=== PATIENT | male | born 1985 | race Caucasian/White ===

== ENCOUNTER 2020-08-14 21:58 | Emergency (ER) | payer SELFPAY ==
[2020-08-14 21:57] VITALS: BP 124/72; PULSE 99; RESP 16; TEMP 36.7; O2SAT 97; BMI 28.1
--- NOTE | 2020-08-14 22:05 | XR_ITS ---
PROCEDURE: XR SHOULDER RT MIN 2V Referring Doctor: Jose Rossi Patient Age:34Y CLINICAL INDICATION: felt pop in shoulder with pain COMPARISON: No exams were available for comparison FINDINGS: RIGHT SHOULDER3 VIEW: Ap Internal And External Rotation Along With Y-view Right shoulder intact no fracture nor dislocation. Normal glenohumeral relationships. AC joint appears normal. Humeral head and neck appear intact. Scapula intact. Upper right ribs are right lung apex satisfactory. Bones well mineralized. No osseous lesions. Soft tissues unremarkable lesions IMPRESSION: No acute findings. . Right shoulder intact. Unremarkable on plain film Dictated by: Tanner Sanchez MD 08/15/2020 16:01 Tanner Sanchez MD in [place] 08/15/2020 16:01
--- NOTE | 2020-08-14 22:40 | [facility].EDMCLR ---
ED Disposition Clinical Impression: Medical clearance for incarceration Shoulder pain, right Qualifiers: Chronicity: acute Qualified Code(s): M25.511 - Pain in right shoulder Disposition: Home, Self-Care Condition on Discharge: Good Instructions: DI for Shoulder Pain Additional Instructions: see pcp for follow up Referrals: PCP,Myriam [Primary Care Provider] - - Critical Care Critical Care Time: No Attestation: On 08/14/20, the high probability of a clinically significant, sudden or life threatening deterioration of the following system(s) required my full and direct attention, intervention and personal management. The time I documented below is in addition to time spent performing reported procedures but includes the following listed in this critical care notation. Medical Decision Making - Medical Records Medical records reviewed: Yes: I reviewed the patient's medical records. - Santino Inquiry Pt receiving controlled substance: No Vital Signs: 08/14/20 21:57 Temperature 98.1 F Temperature Source Oral Pulse Rate [Left Radial] 99 H Respiratory Rate 16 Blood Pressure [Right Arm] 124/72 Blood Pressure Mean [Right Arm] 89 Blood Pressure Source [Right Arm] Automatic Cuff Blood Pressure Position [Right Arm] Sitting 02 Sat by Pulse Oximetry 97 Oxygen Delivery Method Room Air Orders (Tests/Meds): ORDERS Category Date Time Status XR shoulder RT min 2V Stat Exams 08/14/20 22:05 Taken - Radiology Data #1 Image(s): Shoulder Image Reviewed: Yes I reviewed the patient's radiology image Preliminary Findings: No Fracture Seen Medical Clearance HPI - General Chief complaint: Medical Clearance Stated complaint: medical clearence Time Seen by Provider: 08/14/20 22:20 Mode of Arrival: EMS Source of Information: Patient, Law Enforcement, Medical Record Limitations: No Limitations Description of Symptoms (Recalled from ER Triage Doc. by RN): pt brought in for medical clearence. pt stated he felt his right shoulder pop when he was placed in handcuffs and reports pain with movement. pt stated she was exposed to someone positive for COVID about a week and a half ago but denies any symptoms - History of Present Illness HPI Narrative: rt shoulder pain after handcuffed by police - heard pop and has hx of shoulder pain - no def sig covid contact complaint: medical clearance requested Onset (ago): hour(s) Reason for Medical Clearance: medical condition Traumatic Symptoms: extremity injury Associated Symptoms: denies other symptoms Treatments Prior to Arrival: none Allergies/Adverse reactions: Allergies Allergy/AdvReac Type Severity Reaction Status Date / Time No Known Allergies Allergy Unverified 09/11/17 15:06 [facility] History - Hepatitis A Screen Drug use history?: No High risk sexual behaviors?: No History of sexually transmitted infection?: No Currently employed?: No Childcare worker?: No Do you have indoor plumbing?: Yes Do you have electricity?: Yes Attestation statement:: This patient has been screened for Hepatitis A risk factors. I have reviewed the patient's past medical history: Yes ROS Obtained: Yes All systems reviewed & no additional complaints - Constitutional Constitutional: Denies fever(s) - Respiratory Respiratory: No cough - Genitourinary Male Genitourinary: Denies flank pain - Musculoskeletal Musculoskeletal: Reports as per HPI, Reports joint pain, Denies deformity, Denies joint swelling, Reports limited range of motion - Integumentary/Breasts Skin/Breast: Denies rash - Neurologic Neurologic: Denies seizure-like activity Physical Exam - General General appearance: alert - Head Head exam: normocephalic - Eye Eye exam: Present: PERRL, EOMI - ENT ENT exam: Present: mucous membranes moist - Neck Neck exam: Present: trachea midline - Respiratory Respiratory exam: Absent: respiratory distress - Cardiovascular Cardiovascular
[2020-08-14 22:55] VITALS: BP 153/82; PULSE 80; RESP 15; TEMP 36.7; O2SAT 98
== END 2020-08-14 22:57 | disposition home or self-care (01) ==
PROVIDERS: Emergency Provider Emergency Medicine
DX: M25.511 Pain in right shoulder (principal)
CPT/HCPCS: 73030; 99283

== ENCOUNTER 2023-01-08 16:57 | Emergency (ER) | payer OTHER, SELFPAY ==
[2023-01-08] VITALS (7 sets, daily range): BP systolic 125–146; BP diastolic 64–94; PULSE 82–102; RESP 16; TEMP 36.6; O2SAT 95–99; BMI 32.3
--- NOTE | 2023-01-08 17:34 | CT_ITS ---
PROCEDURE INFORMATION: Exam: CT Abdomen And Pelvis With Contrast Exam date and time: 01/08/2023 6:33 PM Age: 37 years old Clinical indication: Abdominal pain; Generalized; Additional info: Abscess TECHNIQUE: Imaging protocol: Computed tomography of the abdomen and pelvis with contrast. Radiation optimization: All CT scans at this facility use at least one of these dose optimization techniques: automated exposure control; mA and/or kV adjustment per patient size (includes targeted exams where dose is matched to clinical indication); or iterative reconstruction. Contrast material: ISOVUE; Contrast volume: 75 ml; Contrast route: IV; REPORTING DATA: Count of CT and Cardiac NM exams in prior 12 months: This patient has received 0 known CTs and 0 known cardiac nuclear medicine studies in the 12 months prior to the current study. COMPARISON: ABDPELW/O CT ABD PELVIS W/O CONTRAST 05/04/2017 1:43 AM FINDINGS: Liver: Normal. No mass. Gallbladder and bile ducts: Normal. No calcified stones. No ductal dilation. Pancreas: Normal. No ductal dilation. Spleen: Normal. No splenomegaly. Adrenal glands: Normal. No mass. Kidneys and ureters: Right kidney multiple punctate nonobstructing stones. Left kidney multiple nonobstructing stones measuring up to 3 mm. Stomach and bowel: Unremarkable. No obstruction. No mucosal thickening. Appendix: Normal appendix. Intraperitoneal space: Unremarkable. No free air. No significant fluid collection. Vasculature: Unremarkable. No abdominal aortic aneurysm. Lymph nodes: Unremarkable. No enlarged lymph nodes. Urinary bladder: Unremarkable as visualized. Reproductive: Unremarkable as visualized. Bones/joints: Unremarkable. No acute fracture. Soft tissues: Anterior pelvic wall skin thickening and subcutaneous inflammatory changes. Suggestion of a small right of midline ovoid shaped abscess measuring 1.4 cm in size. No foreign body or bubbles of air. No deep soft tissue involvement. IMPRESSION: Anterior pelvic wall cellulitis with a right of midline small abscess.
[2023-01-08 18:22] LABS: Basophils % 0.1 % (0.1-2.0); Eosinophils # 0.1 K/mm3 (0.0-0.4); Eosinophils % 0.9 % (0.1-12.0); Hematocrit 43.3 % (42.0-52.0); Hemoglobin 14.2 g/dL (14.1-18.0); Lymphocytes # 1.8 K/mm3 (0.7-4.5); Lymphocytes % 14.1 % (10-50); Mean Corpuscular HGB Conc 32.9 g/dL (31.8-35.4); Mean Corpuscular Hemoglobin 31.8 pg (27.0-31.2); Mean Corpuscular Volume 96.6 fl (80-94); Monocytes # 0.7 K/mm3 (0.1-1.0); Neutrophils # 10.5 K/mm3 (1.8-7.8); Platelet Count 251 K/mm3 (142-424); Red Blood Count 4.48 M/mm3 (4.60-6.20); White Blood Count 13.1 K/mm3 (4.8-10.8)
[2023-01-08 18:30] LABS: Activated Partial Thrombo Time 30.8 seconds (22.8-30.6); Chloride 102 mmol/L (98-107); INR 0.93 (0.9-1.1); Potassium 3.7 mmoL/L (3.5-5.1); Prothrombin Time 10.1 seconds (10.1-12.5); Sodium 138 mmol/L (136-145)
--- NOTE | 2023-01-08 18:31 | PC.NURSE ---
pt to CT
[2023-01-08 18:33] LABS: Alanine Aminotransferase 19 U/L (12-78); Albumin Level 4.2 g/dl (3.5-5.0); Albumin/Globulin Ratio 1.5 (1.1-1.8); Alkaline Phosphatase 90 U/L (38-126); Anion Gap 10.7 mEq/L (5-15); Aspartate Amino Transferase 27 U/L (17-59); Bilirubin,Total 0.8 mg/dl (0.2-1.3); Blood Urea Nitrogen 13 mg/dl (9-20); Calcium 8.6 mg/dl (8.4-10.2); Carbon Dioxide 29 mmol/L (22.0-30.0); Creatinine Clearance Estimated 164 mL/min (50-200); Estimated Glomerular Filt Rate 109 ml/min (>60); GFR (African American) 132 ML/MIN (>60); Globulin 2.8 g/dL (1.3-3.2); Glucose 100 mg/dl (74-100)
[2023-01-08 18:34] LABS: Lactic Acid 0.8 mmol/L (0.7-2.1)
--- NOTE | 2023-01-08 18:36 | HMH.EDSKAF ---
Discharge Plan Disposition Patient Disposition: Home, Self-Care Prescriptions Prescriptions: New sulfamethoxazole-trimethoprim [Bactrim DS] 800-160 mg tablet 1 tab PO BID 10 Days Qty: 20 0RF cephalexin 500 mg capsule 500 mg PO QID 10 Days Qty: 40 0RF ibuprofen 600 mg tablet 600 mg PO Q6H PRN (Reason: fever or pain) Qty: 40 0RF Activity Restrictions/Add. Instructions Additional Instructions/Restrictions: Keep the packing in do not pull on the packing. Come back in 2 days for packing removal finish antibiotics. Clinical Impressions Clinical Impression: Cellulitis, Abscess of skin or subcutaneous tissue Instructions Patient Instructions: Cellulitis, Boil, DI for Skin Abscess Discharge ED Provider: Lynn Michael Skin/Abscess/FB HPI General Chief complaint: Skin/Abscess/Foreign Body Stated complaint: possible abcess on stomach Time Seen by Provider: 01/08/23 18:01 Mode of Arrival: Ambulatory Limitations: No Limitations Description of Symptoms (Recalled from ER Triage Doc. by RN): Red, swollwen golf ball sized area on lower abd, pt reports area has been presents x4 days. Area warm to the touch and redness around area. No drainage. Center of of is a black scab like area that is hard. Pt denies fevers. 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 History of Present Illness HPI narrative: Patient is a 37-year-old male who is here secondary to suprapubic abscess. Patient is having a lot of redness and swelling and abscess with the suprapubic area. Patient apparently has MRSA. Patient stated he clipped his abdominal hair. Patient stated that is not what caused. Patient thinks there was a tick there and suprapubic area he tried to get out now there is swelling absent fluctuant to that area. He has no fever chills no nausea vomiting. MD complaint: insect bite/sting and abscess/boil Onset (ago): day(s) Tetanus up to date: no Severity: moderate Severity scale (1-10): 7 Quality: dull Consistency: constant Relieving factors: none Exacerbating factors: movement Context: none Associated symptoms: denies other symptoms Treatments prior to arrival: none Related Data Previous Rx's Medication Instructions Recorded cephalexin 500 mg capsule 500 mg PO QID 10 days #40 caps 01/08/23 ibuprofen 600 mg tablet 600 mg PO Q6H PRN fever or pain 01/08/23 #40 tabs sulfamethoxazole 800 1 tab PO BID 10 days #20 tabs 01/08/23 mg-trimethoprim 160 mg tablet (Bactrim DS) Allergies Allergy/AdvReac Type Severity Reaction Status Date / Time No Known Allergies Allergy Unverified 09/11/17 15:06 [facility] Disclaimer: The information contained in this section may have been updated after the patient was seen, as this information can be updated by other users. Social History Smoking Status: Unknown if ever smoked alcohol intake: current current occupational status: employed Travel in the last 8 weeks: None ROS Obtained: Yes All systems reviewed & no additional complaints except as documented Constitutional Constitutional: Reports system reviewed and no additional complaints, except as documented Eyes Eyes: Reports system reviewed and no additional complaints, except as documented Cardiovascular Cardiovascular: Reports system reviewed and no additional complaints, except as documented Gastrointestinal Gastrointestingal: Reports abdominal pain (supurapubic tenderness/abscess) Physical Exam General General appearance: alert and in distress Head Head exam: atraumatic, normocephalic and normal inspection Eye Eye exam: Present normal appearance, PERRL and EOMI; Absent scleral icterus or conjunctival redness ENT ENT exam: Present normal exam, normal oropharynx and mucous membranes moist Neck Neck exam: Present normal inspection, full ROM and trachea midline Chest Chest inspection: Present normal in
--- NOTE | 2023-01-08 19:04 | PC.NURSE ---
shift change report given to denise mccormick and alejandrinarn
[2023-01-08 19:05] LABS: Procalcitonin 0.078 ng/mL (0.0-2.0)
--- NOTE | 2023-01-08 20:45 | PC.NURSE ---
PC to radiology to check status of imaging, per Ignacia radio officer, they are still sitting to be read
--- NOTE | 2023-01-11 10:00 | PC.NURSE ---
wound culture results called to ED. attempted to call pt for results but there is not a phone number listed in chart for pt.
== END 2023-01-08 21:11 | disposition home or self-care (01) ==
PROVIDERS: Emergency Provider Emergency Medicine
DX: L02.211 Cutaneous abscess of abdominal wall (principal); L03.311 Cellulitis of abdominal wall
CPT/HCPCS: 10060; 74177; 80053; 83605; 84145; 85025; 85610; 85730; 87040; 87070; 87077; 87186; 87205; 90715; 96372; 96374; 96375; 99284; 99285; J3370; Q9967